=== PATIENT | female | born 1960 | race Caucasian/White ===

== ENCOUNTER → 2016-05-16 19:30 | Outpatient (CLI) | payer OTHER ==
[2014-08-11 10:38] VITALS: BMI 23.6
[~2016-05-16 19:30] MED LIST: ASPIRIN EC81 M1 PO; CALCIUM PO; HYDROCODONE-APA1 TAB PO; IBUPROFEN600 MG PO; VITAMIN D31000 UNI2 PO; ZOCOR40 MG PO
[2016-05-16 19:55] LABS: ALBUMIN 4.3 g/dL (3.4-5.0); BILIRUBIN - DIRECT 0.14 mg/dL (0.00-0.30); BILIRUBIN - INDIRECT 0.22 mg/dL (0.00-1.00); BILIRUBIN - TOTAL 0.36 mg/dL (0.2-1.3); CALCIUM 9.6 mg/dL (8.5-10.1); CHOL - HDL RATIO 2.9 ratio (2.3-4.1); LDL-HDL RATIO 1.7 ratio (1.5-3.5); PROTEIN - SERUM 7.3 g/dL (6.4-8.2)
== END | disposition home or self-care (01) ==
LOC: D.LABREF 19:30
PROVIDERS: Family Medicine
DX: M81.0 Age-related osteoporosis without current pathological fracture (principal); E78.5 Hyperlipidemia, unspecified; Z11.59 Encounter for screening for other viral diseases

== ENCOUNTER → 2017-06-24 16:16 | Outpatient (CLI) | payer OTHER ==
[2014-08-11 10:38] VITALS: BMI 23.6
== END | disposition home or self-care (01) ==
LOC: D.MAMMO 08:00
DX: Z12.31 Encounter for screening mammogram for malignant neoplasm of breast (principal)